=== PATIENT | female | born 1985 | race American Indian/Alaskan Native ===

== ENCOUNTER 2019-10-06 19:32 | Emergency (ER) | payer MEDICAID, OTHER ==
[~2019-10-06] VITALS: Ht 162.6 cm; Wt 90.7 kg
[2019-10-06] MEDS ORDERED: LIDOCAINE W/ EPINEPHRINE 2% INJ 20ML VIAL IJ ONE (22:00)
[2019-10-06 22:04] VITALS: BP 144/90
[2019-10-06] MEDS ORDERED: LIDOCAINE W/ EPINEPHRINE 1% 20ML VIAL ID ONE (22:30)
== END 2019-10-06 23:12 | disposition home or self-care (01) ==
LOC: ER 19:33
DX: S06.0X9A Concussion with loss of consciousness of unspecified duration, initial encounter (principal); S01.81XA Laceration without foreign body of other part of head, initial encounter; F17.210 Nicotine dependence, cigarettes, uncomplicated; W01.0XXA Fall on same level from slipping, tripping and stumbling without subsequent striking against object, initial encounter; Y93.89 Activity, other specified; Y92.89 Other specified places as the place of occurrence of the external cause; Y99.8 Other external cause status
CPT/HCPCS: 12013; 70450